=== PATIENT | female | born 1990 | race African-American/Black ===

== ENCOUNTER 2023-06-24 02:08 | Observation (INO) | payer MEDICAID, OTHER ==
[~2023-06-24] VITALS: Ht 160 cm; Wt 77.1 kg
[2023-06-24 02:57] VITALS: BP 133/77; PULSE 126; RESP 20; TEMP 99.5
== END 2023-06-24 02:40 | disposition left against medical advice (07) ==
LOC: MLD 02:08
PROVIDERS: ADMIT Obstetrics & Gynecology; ATTEND Obstetrics & Gynecology
DX: O62.9 Abnormality of forces of labor, unspecified (principal); Z3A.30 30 weeks gestation of pregnancy
CPT/HCPCS: 81000; G0378; G0379